=== PATIENT | male | born 1980 | race Caucasian/White ===

== ENCOUNTER 2024-07-10 16:01 | Inpatient (IN) | payer OTHER ==
[2024-07-10 15:14] VITALS: BMI 17.2
[~2024-07-10 16:01] MED LIST: ACETAMINOPHEN 325 MG TABLET (FP) PO PRN; BENZOCAINE/MENTHOL (CHLORASEPTIC ) LOZENGE MM PRN; BENZONATATE 200 MG CAPSULE PO PRN; BISMUTH SUBSALICYLATE 524 MG/30 ML PO PRN; DICYCLOMINE HCL 10 MG CAPSULE PO PRN; IBUPROFEN 400 MG TABLET (FP) PO PRN; IBUPROFEN 600 MG TABLET (FP) PO PRN; LOPERAMIDE HCL 2 MG CAPSULE PO PRN; MAG HYDROX/AL HYDROX/SIMETH 30 ML UNIT-DOSE CUP PO PRN; MAGNESIUM HYDROX 2400MG/30ML ORAL SUSPENSION 30 ML CUP PO PRN; METHOCARBAMOL 500 MG TABLET PO PRN; NALOXONE (NARCAN) HCL 4 MG/0.1 ML SPRAY NS PRN; NICOTINE 14 MG/24 HOURS TOPICAL PATCH TD ONE; NICOTINE POLACRILEX 4 MG GUM BUC PRN; ONDANSETRON *ODT* 4 MG TABLET SL PRN; POLYETHYLENE GLYCOL (HEALTHYLAX) 3350 17 GM PACKET PO PRN; guaiFENesin 600 MG TABLET.ER (FP) PO PRN; hydrOXYzine PAMOATE 25 MG CAPSULE (FP) PO PRN; methaDONE HCL 10 MG TABLET (FOR DETOX USE ONLY) ONE
[2024-07-10] MEDS ORDERED: methaDONE HCL 10 MG TABLET PO PRN (17:00)
[2024-07-10] MEDS ORDERED: methaDONE HCL 10 MG TABLET (FOR DETOX USE ONLY) ONE (22:19)
[2024-07-10] MEDS ORDERED: cloNIDine HCL 0.1 MG TABLET ONE (22:19)
[2024-07-10] MEDS: methaDONE HCL 10 MG TABLET PO ONE (22:24)
[2024-07-10] MEDS: cloNIDine HCL 0.1 MG TABLET PO SCH (22:24)
[2024-07-10] MEDS: PRENATAL VITAMINS W/ FOLIC ACID TABLET (FP) PO SCH (22:24)
[2024-07-10] MEDS: NICOTINE 14 MG/24 HOURS TOPICAL PATCH TD SCH (22:25)
[2024-07-10] MEDS ORDERED: MELATONIN 5 MG TABLETS ONE (22:28)
[2024-07-10] MEDS: MELATONIN 5 MG TABLETS PO SCH (22:30)
[2024-07-10] MEDS: THIAMINE 100 MG TABLET PO SCH (22:30)
[2024-07-10] MEDS: MINERAL OIL/PETROLAT/WATER TOPICAL CREAM 113 GM JAR TP SCH (23:38)
[2024-07-11] MEDS: methaDONE 40 MG, methaDONE 10 MG PO ONE (10:36)
[2024-07-11 11:25] LABS: HEMATOCRIT 20.6 % (35.4-49); MCHC 26.5 g/dl (32.0-35.9); MEAN CELL VOLUME 52.8 fl (80-96); MEAN PLT VOLUME 8.1 fl (7.5-11.1); PLATELET COUNT 211 10^3/uL (134-434); RBC 3.91 M/mm3 (4.00-5.60); RDW 22.4 % (11.9-15.9); WHITE BLOOD COUNT 3.4 K/mm3 (4.0-10.0)
[2024-07-11 11:31] LABS: ALBUMIN 2.7 g/dl (3.4-5.0); BLOOD UREA NITROGEN 8.8 mg/dL (7-18); CALCIUM 8.2 mg/dL (8.5-10.1)
[2024-07-11 11:34] LABS: CREATININE 0.6 mg/dL (0.55-1.3)
[2024-07-11 11:35] LABS: BILIRUBIN,TOTAL 0.4 mg/dL (0.2-1)
[2024-07-11 11:47] LABS: HEMOGLOBIN 5.5 GM/dL (11.7-16.9)
[2024-07-11 12:26] VITALS: BP 124/86; PULSE 71; RESP 16; TEMP 97.7
[2024-07-12] MEDS ORDERED: cloNIDine HCL 0.1 MG TABLET PO PRN
[2024-07-12] MEDS ORDERED: methaDONE 40 MG, methaDONE 20 MG PO ONE (10:00)
[2024-07-12] MEDS ORDERED: methaDONE HCL 10 MG TABLET PO ONE ×2 (11:59→18:00)
[2024-07-13] MEDS ORDERED: methaDONE 40 MG, methaDONE 30 MG PO ONE (10:00)
[2024-07-14] MEDS ORDERED: methaDONE HCL 40 MG DISPERSABLE TABLET PO ONE (10:00)
[2024-07-15] MEDS ORDERED: methaDONE 80 MG, methaDONE 10 MG PO ONE (10:00)
== END 2024-07-11 23:40 | disposition short-term general hospital (02) | DRG 773 ==
LOC: YASAS 16:01 → Y3N 21:57
PROVIDERS: ADMIT Allergy & Immunology; ATTEND Psychiatry & Neurology Pain Medicine
PROC: HZ2ZZZZ Detoxification Services for Substance Abuse Treatment (ICD-10-PCS; principal; 2024-07-10)
DX: F11.23 Opioid dependence with withdrawal (principal); F14.20 Cocaine dependence, uncomplicated; F12.20 Cannabis dependence, uncomplicated; F17.210 Nicotine dependence, cigarettes, uncomplicated; Z59.02 Unsheltered homelessness; R79.89 Other specified abnormal findings of blood chemistry
CPT/HCPCS: 36415; 80053; 80305; 80307; 85027; 86780; 93005; 93010

== ENCOUNTER 2024-07-14 15:04 | Inpatient (IN) | payer OTHER ==
[2024-07-14 16:16] VITALS: BMI 17.4
[2024-07-14] MEDS ORDERED: NALOXONE (NARCAN) HCL 4 MG/0.1 ML SPRAY NS PRN (16:20)
[2024-07-14] MEDS ORDERED: BENZONATATE 200 MG CAPSULE PO PRN (16:20)
[2024-07-14] MEDS ORDERED: ACETAMINOPHEN 325 MG TABLET (FP) PO PRN (16:20)
[2024-07-14] MEDS ORDERED: P-EPHED 60MG/TRIPROLIDI 2.5MG TABLET PO PRN (16:20)
[2024-07-14] MEDS ORDERED: POLYETHYLENE GLYCOL (HEALTHYLAX) 3350 17 GM PACKET PO PRN (16:20)
[2024-07-14] MEDS ORDERED: NICOTINE POLACRILEX 2 MG GUM BUC PRN (16:20)
[2024-07-14] MEDS ORDERED: guaiFENesin 600 MG TABLET.ER (FP) PO PRN (16:20)
[2024-07-14] MEDS ORDERED: ONDANSETRON *ODT* 4 MG TABLET SL PRN (16:20)
[2024-07-14] MEDS ORDERED: MAGNESIUM HYDROX 2400MG/30ML ORAL SUSPENSION 30 ML CUP PO PRN (16:20)
[2024-07-14] MEDS ORDERED: BENZOCAINE/MENTHOL (CHLORASEPTIC ) LOZENGE MM PRN (16:20)
[2024-07-14] MEDS ORDERED: DICYCLOMINE HCL 10 MG CAPSULE PO PRN (16:20)
[2024-07-14] MEDS ORDERED: MAG HYDROX/AL HYDROX/SIMETH 30 ML UNIT-DOSE CUP PO PRN (16:20)
[2024-07-14] MEDS ORDERED: NICOTINE POLACRILEX 2 MG LOZENGE BC PRN (16:20)
[2024-07-14] MEDS ORDERED: BISMUTH SUBSALICYLATE 524 MG/30 ML PO PRN (16:20)
[2024-07-14] MEDS ORDERED: LOPERAMIDE HCL 2 MG CAPSULE PO PRN (16:20)
[2024-07-14] MEDS ORDERED: diazePAM 5 MG TABLET ONE (17:19)
[2024-07-14] MEDS: diazePAM 5 MG TABLET PO ONE (17:23)
[2024-07-14] MEDS: diazePAM 5 MG TABLET PO SCH (17:24)
[2024-07-14] MEDS ORDERED: methaDONE HCL 10 MG TABLET PO PRN ×2 (18:26)
[2024-07-14] MEDS: THIAMINE 100 MG TABLET PO SCH (22:49)
[2024-07-14] MEDS: MELATONIN 5 MG TABLETS PO SCH (22:50)
[2024-07-15] MEDS: diazePAM 5 MG TABLET PO SCH (05:25)
[2024-07-15 08:51] LABS: HEMATOCRIT 32.3 % (35.4-49); HEMOGLOBIN 9.6 GM/dL (11.7-16.9); MCHC 29.7 g/dl (32.0-35.9); MEAN CELL VOLUME 63.9 fl (80-96); PLATELET COUNT 195 10^3/uL (134-434); RBC 5.05 M/mm3 (4.00-5.60); RDW 34.1 % (11.9-15.9)
[2024-07-15] MEDS: methaDONE 40 MG, methaDONE 30 MG PO ONE (10:06)
[2024-07-15] MEDS: PANTOPRAZOLE 40 MG TABLET PO SCH (10:07)
[2024-07-15] MEDS: PRENATAL VITAMINS W/ FOLIC ACID TABLET (FP) PO SCH (10:07)
[2024-07-15] MEDS: NICOTINE 14 MG/24 HOURS TOPICAL PATCH TD SCH (10:09)
[2024-07-15] MEDS: diazePAM 5 MG TABLET PO PRN (22:33)
[2024-07-16] MEDS ORDERED: cloNIDine HCL 0.1 MG TABLET PO PRN
[2024-07-16] MEDS: diazePAM 5 MG TABLET PO ONE (05:47)
[2024-07-16] MEDS: methaDONE HCL 40 MG DISPERSABLE TABLET PO ONE (10:01)
[2024-07-16] MEDS: CYPROHEPTADINE HCL 4 MG TABLET PO SCH (16:13)
[2024-07-16] MEDS: FERROUS SO4 325 MG TABLET (FP) PO SCH (17:46)
[2024-07-16] MEDS: ACAMPROSATE CALCIUM 333 MG TABLET.DR PO SCH (22:45)
[2024-07-17] MEDS ORDERED: methaDONE 80 MG, methaDONE 10 MG PO ONE (10:00)
[2024-07-17] MEDS: methaDONE 80 MG, methaDONE 10 MG PO ONE (10:17)
[2024-07-17] MEDS: METHOCARBAMOL 500 MG TABLET PO PRN (17:18)
[2024-07-18 08:58] VITALS: BP 127/82; PULSE 105; RESP 18; TEMP 98.9
== END 2024-07-18 09:05 | disposition home or self-care (01) | DRG 773 ==
LOC: YASAS 15:04 → Y6N 16:51
PROVIDERS: ADMIT Allergy & Immunology; ATTEND Allergy & Immunology
PROC: HZ2ZZZZ Detoxification Services for Substance Abuse Treatment (ICD-10-PCS; principal; 2024-07-14)
DX: F11.23 Opioid dependence with withdrawal (principal); F10.230 Alcohol dependence with withdrawal, uncomplicated; F13.20 Sedative, hypnotic or anxiolytic dependence, uncomplicated; F12.20 Cannabis dependence, uncomplicated; F17.210 Nicotine dependence, cigarettes, uncomplicated; D50.9 Iron deficiency anemia, unspecified; B18.1 Chronic viral hepatitis B without delta-agent; B18.2 Chronic viral hepatitis C; M54.50 Low back pain, unspecified; G89.29 Other chronic pain; Z86.19 Personal history of other infectious and parasitic diseases; Z59.00 Homelessness unspecified
CPT/HCPCS: 0241U-QW; 36415; 36430; 71045-TC-FY; 74018-TC-FY; 74177-TC; 76700-TC; 80048; 80053; 80305; 80307; 82550; 83540; 83550; 83735; 84100; 84484; 85025; 85027; 85610; 85730; 86359; 86360; 86704; 86706; 86709; 86803; 86850; 86900; 86901; 86922; 87340; 87389; 87516; 87522; 87536; 93005; 93010; 97116-GP; 97161-GP; 99291; G0378; J0131; J1756; P9058; Q9967